=== PATIENT | female | born 1965 | race Caucasian/White ===

== ENCOUNTER 2018-03-27 05:14 | Day surgery (SDC) | payer BC, OTHER ==
[2018-03-15 13:34] VITALS: BP 159/83
[~2018-03-27] VITALS: Ht 162.6 cm; Wt 81.7 kg
[~2018-03-27 05:14] MED LIST: ALBU18HF INH; suboxone SL
[2018-03-27] MEDS ORDERED: LACTATED RINGERS 1,000 ML IV SCH (05:54)
[2018-03-27] MEDS ORDERED: ALPR-475 PO (05:56)
[2018-03-27] MEDS ORDERED: LIDOCAINE-MPF 1%, 2ML INFIL ONE (06:00)
[2018-03-27] MEDS ORDERED: LIDOCAINE/PF 1%, 30ML ONE (06:14)
[2018-03-27] MEDS ORDERED: ROPIvacaine/PF 0.5%, 30 ML ONE (06:14)
[2018-03-27] MEDS ORDERED: EPINEPHRINE 1 MG/ML, 1ML ONE (06:15)
[2018-03-27 06:19] LABS: HCG UR SG 1.025 (1.003-1.030)
[2018-03-27] MEDS ORDERED: ONDANSETRON 2MG/ML, 2ML IVPush ONE (06:30)
[2018-03-27] MEDS ORDERED: OxyconTIN ER 20 MG TAB.ER PO ONE (06:30)
[2018-03-27] MEDS ORDERED: FAMOTIDINE 20 MG TABLET PO ONE (06:30)
[2018-03-27] MEDS ORDERED: ACETAMINOPHEN 500 MG TABLET PO ONE (06:30)
[2018-03-27] MEDS ORDERED: SCOPOLAMINE PATCH, 1.5MG PATCH.TD72 TD ONE (06:30)
[2018-03-27] MEDS ORDERED: GABAPENTIN 300 MG CAPSULE PO ONE (06:30)
[2018-03-27] MEDS ORDERED: MIDAZOLAM 1 MG/ML, 2ML ONE (06:43)
[2018-03-27] MEDS ORDERED: FENTANYL PF 250 MCG/5ML ONE (06:44)
[2018-03-27] MEDS ORDERED: KETAMINE 10 MG/ML, 20ML ONE (06:47)
[2018-03-27] MEDS ORDERED: DEXAMETHASONE 4 MG/ML, 1ML ONE (07:14)
[2018-03-27] MEDS ORDERED: PROPOFOL 10 MG/ML, 20ML ONE (07:14)
[2018-03-27] MEDS ORDERED: CEFAZOLIN 1,000 MG ONE (07:14)
[2018-03-27] MEDS ORDERED: KETOROLAC 30 MG/1 ML ONE (07:14)
[2018-03-27] MEDS ORDERED: ONDANSETRON 2MG/ML, 2ML ONE (07:14)
[2018-03-27] MEDS ORDERED: ALBUTEROL/IPRATROPIUM 2.5MG/0.5MG, 3 ML NPPB PRN (08:00)
[2018-03-27] MEDS ORDERED: LABETALOL 5MG/ML, 20ML IV PRN (08:00)
[2018-03-27] MEDS ORDERED: DIAZEPAM 5 MG/ML, 2ML IVPush PRN (08:00)
[2018-03-27] MEDS ORDERED: OXYcodone 5 MG/5 ML ORAL.SOL UDC PO PRN (08:00)
[2018-03-27] MEDS ORDERED: ONDANSETRON ODT 8 MG PO PRN (08:00)
[2018-03-27] MEDS ORDERED: MEPERIDINE/PF 25MG/0.5ML IVPush PRN (08:00)
[2018-03-27] MEDS ORDERED: MIDAZOLAM 1 MG/ML, 2ML IV PRN (08:00)
[2018-03-27] MEDS ORDERED: PROMETHAZINE 25 MG/ML, 1ML IV PRN (08:00)
[2018-03-27] MEDS ORDERED: EPHEDRINE 50 MG/ML, 1ML IM PRN (08:00)
[2018-03-27] MEDS ORDERED: MORPHINE SULFATE 4 MG/ML, 1ML IVPush PRN (08:00)
[2018-03-27] MEDS ORDERED: METOCLOPRAMIDE 5 MG/ML, 2ML IV PRN (08:00)
[2018-03-27] MEDS ORDERED: FENTANYL PF 100 MCG/2ML ONE (08:14)
[2018-03-27] MEDS ORDERED: HYDROmorphone 2 MG/ML, 1ML ONE (08:14)
[2018-03-27] MEDS: FENTANYL PF 100 MCG/2ML IV PRN ×2 (08:16→08:21)
[2018-03-27] MEDS: HYDROmorphone 1 MG/ML, 1ML IV PRN ×4 (08:24→08:56)
== END 2018-03-27 11:05 ==
LOC: OUT 05:14
PROVIDERS: ATTEND Orthopaedic Surgery
DX: S83.241A Other tear of medial meniscus, current injury, right knee, initial encounter (principal); S83.281A Other tear of lateral meniscus, current injury, right knee, initial encounter; S83.511A Sprain of anterior cruciate ligament of right knee, initial encounter; S83.242A Other tear of medial meniscus, current injury, left knee, initial encounter; S83.282A Other tear of lateral meniscus, current injury, left knee, initial encounter; S83.512A Sprain of anterior cruciate ligament of left knee, initial encounter; M94.261 Chondromalacia, right knee; M65.861 Other synovitis and tenosynovitis, right lower leg; J45.909 Unspecified asthma, uncomplicated; Z87.39 Personal history of other diseases of the musculoskeletal system and connective tissue; X58.XXXA Exposure to other specified factors, initial encounter; Y93.89 Activity, other specified; Y92.89 Other specified places as the place of occurrence of the external cause; Y99.8 Other external cause status; Z88.0 Allergy status to penicillin
CPT/HCPCS: 29880; 81025; J0171; J0690; J1100; J1170; J1885; J2250; J2405; J2704; J2795; J3010; J3360; J3490; J7120

== ENCOUNTER 2018-08-12 06:25 | Emergency (ER) | payer OTHER ==
[~2018-08-12] VITALS: Ht 160 cm; Wt 80.0 kg
[~2018-08-12 06:25] MED LIST changes: +ALPR-475 PO
[2018-08-12] MEDS ORDERED: SODIUM CHLORIDE 0.9% 1,000ML IVBOLUS ONE (07:00)
[2018-08-12] MEDS ORDERED: KETOROLAC 30 MG/1 ML IVPush ONE (07:00)
[2018-08-12] MEDS ORDERED: SODIUM CHLORIDE FLUSH 10ML SYR IVF ONE (07:00)
[2018-08-12 07:09] VITALS: BP 111/60
[2018-08-12 07:11] LABS: BASOPHILS % (AUTO) 0 % (0-1); EOSINOPHILS # (AUTO) 0.11 x10^3/uL (0-0.4); EOSINOPHILS % (AUTO) 2 % (1-7); LYMPHOCYTES # (AUTO) 1.01 x10^3/uL (1-3.4); LYMPHOCYTES % (AUTO) 15 % (22-44); MD NO; MEAN CORPUSCULAR HEMOGLOBIN 31.4 pg (27.0-34.8); MEAN CORPUSCULAR HGB CONC 33.6 g/dL (32.4-35.8); MEAN CORPUSCULAR VOLUME 93.2 fL (80-100); MEAN PLATELET VOLUME 7.4 fL (7.4-10.4); MONOCYTES # (AUTO) 0.39 x10^3/uL (0.2-0.8); MONOCYTES % (AUTO) 6 % (2-9); NEUTROPHILS % (AUTO) 78 % (42-75); PLATELET COUNT 247 x10^3/uL (130-400); RED BLOOD COUNT 4.42 x10^6/uL (3.82-5.3); RED CELL DISTRIBUTION WIDTH 12.5 % (9.6-15.2)
[2018-08-12 07:21] LABS: ALANINE AMINOTRANSFERASE 35 U/L (12-78); ALBUMIN 3.4 g/dL (3.4-5.0); ANION GAP 7 mmol/L (5-15); CALCIUM 7.7 mg/dL (8.5-10.1); CHLORIDE 109 mmol/L (98-107); CREATININE 0.67 mg/dL (0.55-1.02)
[2018-08-12 07:22] LABS: INTERNATIONAL NORMALIZED RATIO 1.02 (0.93-1.1); PROTHROMBIN TIME 10.8 Seconds (9.6-11.5)
[2018-08-12 07:24] LABS: ALKALINE PHOSPHATASE 72 U/L (45-117); BILIRUBIN,TOTAL 0.5 mg/dL (0.2-1.0); TOTAL PROTEIN 7.1 g/dL (6.4-8.2)
[2018-08-12] MEDS ORDERED: METHYLNALTREXONE 12 MG/0.6 ML SQ ONE ×2 (08:00→08:07)
[2018-08-12] MEDS ORDERED: KETOROLAC 30 MG/1 ML ONE (08:04)
[2018-08-12 09:55] LABS: CULTURE INDICATED? NO; MICROSCOPIC NOT IND
== END 2018-08-12 09:47 | disposition home or self-care (01) ==
LOC: ED 08:47
DX: N83.8 Other noninflammatory disorders of ovary, fallopian tube and broad ligament (principal); K59.00 Constipation, unspecified; Z90.49 Acquired absence of other specified parts of digestive tract
CPT/HCPCS: 36415; 74021; 76830; 80053; 81003; 83690; 84703; 85025; 85610; 85730; 96372; 96374; 99284; J1885; J7030